=== PATIENT | female | born 1995 | race Two or more races ===

== ENCOUNTER 2019-10-22 19:52 | Observation (INO) | payer MEDICAID, OTHER ==
[~2019-10-22] VITALS: Ht 152.4 cm; Wt 107.0 kg
[2019-10-22] MEDS ORDERED: NIFEdipine 10 MG CAP PO ONE (21:15)
[2019-10-22] MEDS ORDERED: TERBUTALINE SULFATE 1 MG/ML 1ML VIAL SC SCH (21:15)
== END 2019-10-22 22:40 | disposition home or self-care (01) | DRG 566 ==
LOC: LDRP 19:52
PROVIDERS: ADMIT Specialist; ATTEND Specialist
DX: O24.410 Gestational diabetes mellitus in pregnancy, diet controlled (principal); Z3A.31 31 weeks gestation of pregnancy
CPT/HCPCS: 59025; 76818; 81002; 82962; 96372; G0378; J3105

== ENCOUNTER 2019-10-27 10:52 | Observation (INO) | payer MEDICAID ==
[2019-10-27] MEDS ORDERED: PREN-96 PO (13:27)
== END 2019-10-27 14:12 | disposition home or self-care (01) | DRG 566 ==
LOC: LDRP 10:52
PROVIDERS: ADMIT Specialist; ATTEND Specialist
DX: O24.419 Gestational diabetes mellitus in pregnancy, unspecified control (principal); Z3A.32 32 weeks gestation of pregnancy
CPT/HCPCS: 59025; 76818; 81002; 82948; 82962; G0378

== ENCOUNTER 2019-11-03 08:20 | Observation (INO) | payer MEDICAID ==
[~2019-11-03 08:20] MED LIST: PREN-96 PO
== END 2019-11-03 10:10 | disposition home or self-care (01) ==
LOC: LDRP 08:20
PROVIDERS: ADMIT Specialist; ATTEND Specialist
DX: O24.410 Gestational diabetes mellitus in pregnancy, diet controlled (principal); Z3A.33 33 weeks gestation of pregnancy
CPT/HCPCS: 59025; 76818; 81002; 82948; 82962; G0378

== ENCOUNTER 2019-11-10 08:09 | Observation (INO) | payer MEDICAID ==
[2019-11-10] MEDS ORDERED: FERR-7 PO (09:08)
== END 2019-11-10 10:07 | disposition home or self-care (01) | DRG 566 ==
LOC: LDRP 08:09
PROVIDERS: ADMIT Specialist; ATTEND Specialist
DX: O24.410 Gestational diabetes mellitus in pregnancy, diet controlled (principal); Z3A.34 34 weeks gestation of pregnancy
CPT/HCPCS: 59025; 76818; 81002; 82948; 82962; G0378

== ENCOUNTER 2019-11-17 08:29 | Observation (INO) | payer MEDICAID ==
[~2019-11-17 08:29] MED LIST changes: +FERR-7 PO
== END 2019-11-17 10:13 | disposition home or self-care (01) ==
LOC: LDRP 08:29
PROVIDERS: ADMIT Obstetrics & Gynecology; ATTEND Obstetrics & Gynecology
DX: O24.410 Gestational diabetes mellitus in pregnancy, diet controlled (principal); Z3A.25 25 weeks gestation of pregnancy
CPT/HCPCS: 59025; 76818; 81002; 82948; 82962; G0378

== ENCOUNTER 2019-11-22 18:50 | Observation (INO) | payer MEDICAID | END 2019-11-22 20:30 | disposition home or self-care (01) | LOC: NUR 18:50 → LDRP 19:14 | PROVIDERS: ADMIT Specialist; ATTEND Specialist | DX: O24.419 Gestational diabetes mellitus in pregnancy, unspecified control (principal); Z3A.36 36 weeks gestation of pregnancy | CPT/HCPCS: 59025; 76818; 81002; 82948; 82962; G0378 ==

== ENCOUNTER 2019-11-24 12:30 | Observation (INO) | payer MEDICAID | END 2019-11-24 14:10 | disposition home or self-care (01) | LOC: LDRP 12:30 | PROVIDERS: ADMIT Specialist; ATTEND Specialist | DX: O24.410 Gestational diabetes mellitus in pregnancy, diet controlled (principal); Z3A.36 36 weeks gestation of pregnancy | CPT/HCPCS: 59025; 76818; 81002; 82948; G0378 ==

== ENCOUNTER 2019-12-01 10:01 | Observation (INO) | payer MEDICAID | END 2019-12-01 11:58 | disposition home or self-care (01) | LOC: OB 10:01 → LDRP 10:45 | PROVIDERS: ADMIT Obstetrics & Gynecology; ATTEND Obstetrics & Gynecology | DX: O24.419 Gestational diabetes mellitus in pregnancy, unspecified control (principal); O41.03X0 Oligohydramnios, third trimester, not applicable or unspecified; Z91.040 Latex allergy status; Z3A.36 36 weeks gestation of pregnancy | CPT/HCPCS: 59025; 76818; 81002; 82962; G0378 ==

== ENCOUNTER 2019-12-03 19:17 | Observation (INO) | payer MEDICAID | END 2019-12-03 21:05 | disposition home or self-care (01) | LOC: LDRP 19:17 | PROVIDERS: ADMIT Specialist; ATTEND Specialist | DX: O24.419 Gestational diabetes mellitus in pregnancy, unspecified control (principal); Z3A.37 37 weeks gestation of pregnancy | CPT/HCPCS: 59025; 76818; 81002; 82948; G0378 ==

== ENCOUNTER 2019-12-08 11:57 | Observation (INO) | payer MEDICAID | END 2019-12-08 14:42 | disposition home or self-care (01) | LOC: LDRP 11:57 | PROVIDERS: ADMIT Obstetrics & Gynecology; ATTEND Obstetrics & Gynecology | DX: O24.410 Gestational diabetes mellitus in pregnancy, diet controlled (principal); O40.3XX0 Polyhydramnios, third trimester, not applicable or unspecified; Z91.040 Latex allergy status; Z87.891 Personal history of nicotine dependence; Z3A.38 38 weeks gestation of pregnancy | CPT/HCPCS: 59025; 76818; 81002; 82948; 82962; G0378 ==

== ENCOUNTER 2019-12-11 11:37 | Observation (INO) | payer MEDICAID | END 2019-12-11 14:10 | disposition home or self-care (01) | LOC: LDRP 11:37 | PROVIDERS: ADMIT Obstetrics & Gynecology; ATTEND Obstetrics & Gynecology | DX: O24.419 Gestational diabetes mellitus in pregnancy, unspecified control (principal); O26.893 Other specified pregnancy related conditions, third trimester; N89.8 Other specified noninflammatory disorders of vagina; Z3A.39 39 weeks gestation of pregnancy | CPT/HCPCS: 59025; 76818; 81002; 82948; 82962; G0378 ==

== ENCOUNTER 2019-12-15 11:22 | Observation (INO) | payer MEDICAID | END 2019-12-15 13:43 | disposition home or self-care (01) | LOC: RADONC 11:22 → LDRP 12:22 → UNDOADMOB 14:38 → LDRP 14:38 | PROVIDERS: ADMIT Obstetrics & Gynecology; ATTEND Obstetrics & Gynecology | DX: O24.410 Gestational diabetes mellitus in pregnancy, diet controlled (principal); Z20.828 Contact with and (suspected) exposure to other viral communicable diseases; Z87.891 Personal history of nicotine dependence; Z3A.39 39 weeks gestation of pregnancy | CPT/HCPCS: 59025; 76818; 81002; 82948; 82962; G0378; U0003 ==